=== PATIENT | female | born 1965 | race Caucasian/White ===

== ENCOUNTER 2016-11-05 14:10 | Emergency (ER) | payer MEDICARE, OTHER ==
--- NOTE | ~2016-11-05 | CR63 ---
[facility] A Service of [facility] & [facility] RADIOLOGY TEXT RESULTS PATIENT: ALLISON VARGAS LOCATION: [place] : 67 UNIT #: [id number] AGE: [address]: Marci Prado SEX: F ORDER DR: [id number] [facility] [address] [place], [place] [address] [id number] E MR#: [id number] Acc #: [id number] NAME: ALLISON VARGAS. : 1965 SEX: F STUDY DATE/TIME: 11/05/2016 13:47 UNIT: [facility] ROOM: STUDY DESCRIPTION: CR Chest 2 View Attending Physician: Marci Prado P.A.-C. Ordering Physician: Marci Prado P.A.-C. Primary Care Physician: Shayla Gonzáles Aprn MEDICAL IMAGING REPORT This report is preliminary unless electronic signature is present EXAM 2 views chest, 11/05/2016 HISTORY Short of air. Cough, body aches, cough and fever 3 days duration. Hypoglycemic. FINDINGS PA and lateral radiographs of the chest are presented. No prior studies for comparison. Partially visualized cervical spine fixation hardware. Mild thoracic scoliosis. No acute-appearing bony abnormality. Heart and mediastinum normal in size and contour. The lungs appear somewhat hyperinflated. Correlate with any known history of chronic airway disease. There is no clear indication of acute infectious or inflammatory disease. No definite pleural effusion. No pneumothorax. No suspicious nodule. Visualized upper abdomen unremarkable. Dictated by... Cabrera Krishnamurthy M.D. THIS IS AN ELECTRONICALLY VERIFIED REPORT Cabrera Krishnamurthy M.D. at 11/08/2016 6:08 PM JENNIFER/adrián TD: 11/06/2016 10:19 JOB #: [id number] MEDICAL IMAGING REPORT Page 1 of 1 COPY
[~2016-11-05 14:10] MED LIST: BACTRIM 400-801 TA1 PO; CELEXA PO; ESTRACE PO; KEFLEX500 MG PO; SPIRIVA18 MCG PO; ZOCOR PO
[2016-11-05 14:19] LABS: INFLUENZA A NEG (NEG)
[2016-11-05 14:20] LABS: INFLUENZA B POS (NEG)
[2017-03-07] MEDS ORDERED: TIROSINT50 MCG PO (13:15)
[2017-03-07] MEDS ORDERED: SIMVASTATIN10 MG PO (13:15)
[2017-03-07] MEDS ORDERED: CITALOPRAM HBR40 MG PO (13:16)
[2017-03-07] MEDS ORDERED: DIAZEPAM PO (13:16)
[2017-03-07] MEDS ORDERED: ESTRADIOL1 MG PO (13:16)
[2017-03-07] MEDS ORDERED: HYDROCODON-ACE1 EAC5 PO (13:17)
[2017-03-07] MEDS ORDERED: PROAIR HFA8.5 GM INH (13:18)
== END 2016-11-05 14:55 | disposition home or self-care (01) ==
LOC: CFTX 14:10
PROVIDERS: Physician Assistant
DX: J10.1 Influenza due to other identified influenza virus with other respiratory manifestations (principal); J44.9 Chronic obstructive pulmonary disease, unspecified; F32.9 Major depressive disorder, single episode, unspecified; E03.9 Hypothyroidism, unspecified; F17.210 Nicotine dependence, cigarettes, uncomplicated
CPT/HCPCS: 71020; 87651; 87804; 94640; 99283

== ENCOUNTER → 2016-12-20 | Outpatient (CLI) | payer MEDICARE, OTHER ==
[~2016-12-20] MED LIST changes: +CITALOPRAM HBR40 MG PO; +DIAZEPAM PO; +ESTRADIOL1 MG PO; +HYDROCODON-ACE1 EAC5 PO; +PROAIR HFA8.5 GM INH; +SIMVASTATIN10 MG PO; +TIROSINT50 MCG PO
--- NOTE | ~2016-12-20 | MY11 ---
[facility] A Service of [facility] RADIOLOGY TEXT RESULTS PATIENT: ALLISON VARGAS LOCATION: [facility] #: [id number] : [birth year] UNIT #: [id number] AGE: [address]: Lacho Burgess MD SEX: F ORDER DR: [id number] [facility] [address] [place], [place] [address] [id number] O MR#: [id number] Acc #: [id number] NAME: ALLISON VARGAS. : 1965 SEX: F STUDY DATE/TIME: 12/20/2016 12:22 UNIT: [facility] ROOM: STUDY DESCRIPTION: MY Mammogram Screening Dig [place] Attending Physician: Lacho Burgess M.D. Ordering Physician: Lacho Burgess M.D. Primary Care Physician: Lacho Burgess M.D. MEDICAL IMAGING REPORT This report is preliminary unless electronic signature is present EXAM Mild digital screening digital screening mammogram with CAD DATE 12/20/2016 HISTORY 51-year-old female with no personal or family history of breast cancer or current complaints. COMPARISON Bilateral digital screening mammogram 08/13/2014, 06/20/2013. Left breast digital diagnostic mammogram 09/23/2014, 05/06/2015. Left breast diagnostic ultrasound 05/06/2015. FINDINGS CC and MLO views were obtained of each breast utilizing digital technique and reviewed with an FDA-approved CAD device. Scattered fibroglandular densities are present bilaterally. A previously described small oval nodule within the 3 o'clock left breast on the 2014 screening mammogram has completely resolved today. No new or suspicious nodule, architectural distortion or clustered microcalcification is seen. Scattered fibroglandular densities are present bilaterally. IMPRESSION BIRADS category 1. Negative screening mammogram. Routine screening mammogram is recommended in 1 year. Patients over the age of 40 are entered into a reminder system with target due date for the next mammogram. A result letter will also be sent to the patient. [facility] A Service of [facility] RADIOLOGY TEXT RESULTS PATIENT: ALLISON VARGAS [id number] : [birth year] UNIT #: [id number] AGE: [address]: Lacho Burgess MD SEX: F ORDER DR: BIRADS: 1, negative. Dictated by... Yoana Wagner M.D. THIS IS AN ELECTRONICALLY VERIFIED REPORT Yoana Wagner M.D. at 12/21/2016 9:40 AM ANGLE/thee TD: 12/20/2016 14:11 JOB #: [id number] MEDICAL IMAGING REPORT Page 1 of 1 COPY
== END | disposition home or self-care (01) ==
LOC: CWCC 12:05
DX: Z12.31 Encounter for screening mammogram for malignant neoplasm of breast (principal)
CPT/HCPCS: G0202

== ENCOUNTER → 2017-03-07 | Day surgery (SDC) | payer MEDICARE, OTHER | END | disposition home or self-care (01) | LOC: COPS 12:29 | DX: Z12.11 Encounter for screening for malignant neoplasm of colon (principal); D12.5 Benign neoplasm of sigmoid colon; K64.8 Other hemorrhoids; E03.9 Hypothyroidism, unspecified; F17.210 Nicotine dependence, cigarettes, uncomplicated; Z90.710 Acquired absence of both cervix and uterus; Z98.51 Tubal ligation status; Z98.890 Other specified postprocedural states; Z79.899 Other long term (current) drug therapy | CPT/HCPCS: 88305; J2250 ==

== ENCOUNTER → 2017-03-09 | Day surgery (SDC) | payer MEDICARE, OTHER ==
--- NOTE | ~2017-03-09 | OR ---
Unit #: [id number] #: [id number] Patient: ALLISON VARGAS [id number] [address] [address] [id number] O MR#: [id number] NAME: ALLISON VARGAS ROOM: Date of Procedure: 03/09/2017 Admission Date: 03/09/2017 Surgeon: Marcelino Jauregui M.D. : 1965 Attending Physician: Marcelino Jauregui M.D. Primary Care Physician: Lacho Burgess M.D. OPERATIVE REPORT PREOPERATIVE DIAGNOSES Postlaminectomy degenerative disk disease, back pain, radiculopathy. POSTOPERATIVE DIAGNOSES Postlaminectomy degenerative disk disease, back pain, radiculopathy. PROCEDURE PERFORMED Lumbar epidural steroid injection with intravenous sedation and fluoroscopic guidance for needle localization. INDICATIONS FOR PROCEDURE The patient is a 51-year-old female with previously mentioned diagnosis. She had worsening symptoms of back and radiculopathy consistent with radiculitis that would not settle with conservative measures. Workup demonstrated some acute inflammation around her prior surgical site. There was no new disk herniation due to the irritation. Did not settle with conservative measures, so plan is for a trial of an epidural steroid injection. DESCRIPTION OF PROCEDURE The patient was placed in the seated position. Standard monitors were applied. 2 mg of Versed were given for sedation and anxiolysis, which were adequate. Vital signs remained stable. Sterile prep and drape then of the lumbar area was performed. The skin then at the L5 level was localized with 1% lidocaine. An 18-gauge [place]rex[place]ad needle was then advanced via loss of resistance technique and fluoroscopic guidance into the epidural space. After confirming proper positioning with fluoroscopy and radiographic contrast, 80 mg of Depo-Medrol and 4 mL of 0.125% bupivacaine were deposited. The patient tolerated the procedure otherwise well and was discharged to the recovery room in stable condition. Dictated by... Pedro RiveraP/quanl TD: 03/09/2017 12:32 JOB #: [id number] Unit #: [id number] #: [id number] Patient: ALLISON VARGAS OPERATIVE REPORT Page 1 of 1 X Marcelino Jauregui MD X PROCEDURE OPERATIVE NOTE
--- NOTE | ~2017-03-09 | OR ---
Unit #: [id number] #: [id number] Patient: ALLISON VARGAS [id number] [address] [place], [place] [address] [id number] O MR#: [id number] NAME: ALLISON VARGAS ROOM: Date of Procedure: 03/07/2017 Admission Date: 03/09/2017 Surgeon: Kenny Escobar M.D. : 1965 Attending Physician: Marcelino Jauregui M.D. Primary Care Physician: Lacho Burgess M.D. OPERATIVE REPORT PREOPERATIVE DIAGNOSES Colorectal cancer screening. The patient also has a history of hematochezia. PROCEDURES PERFORMED Colonoscopy and polypectomy. POSTOPERATIVE DIAGNOSES 1. The patient had a sigmoid polyp that the latter was removed using snare cautery polypectomy. 2. Small internal hemorrhoids. 3. Rest of the examination up to cecum and terminal ileum was normal. The quality of prep was excellent. RECOMMENDATIONS Follow up results of polyp histology and consider repeat colonoscopy in 5 years. SEDATION USED MAC. DESCRIPTION OF PROCEDURE Following detailed explanation of the potential risks and complications of a colonoscopy, namely perforation, bleeding, and complications related to sedation, the patient was brought to GI lab and laid in the left lateral decubitus position. A digital rectal examination was performed, which was normal. Lubricated tip of the Olympus video colonoscope was inserted through the anus and advanced under direct vision. The scope was then passed up to sigmoid into descending colon. No diverticula were noted in this area. The scope tip was then navigated all the way up to cecum with visualization of the ileocecal valve and the appendiceal orifice. Preparation was excellent with good visualization, and photodocumentation was obtained. Last several inches of the terminal ileum also visualized after intubation of the ileocecal and appeared normal. Successive segments of the colonic mucosa were examined upon withdrawal, and the patient was noted to have a single sessile polyp in the sigmoid colon. This was about 1.8 to 2 cm in size. It was removed using snare cautery polypectomy. The polyp was retrieved and sent for Histology. No additional polyps noted. The patient did not have any diverticula, but did have small internal hemorrhoids. These were felt to be too small to require band ligation. The scope was withdrawn. The patient returned to the recovery area. She tolerated the procedure without any postprocedure Unit #: [id number] #: [id number] Patient: ALLISON VARGAS complications. Dictated by... Pedro Maher/kyaw TD: 03/15/2017 06:58 JOB #: [id number] OPERATIVE REPORT Page 1 of 1 X Kenny Escobar MD PROCEDURE OPERATIVE NOTE
== END | disposition home or self-care (01) ==
LOC: CCSC 10:36
DX: M51.16 Intervertebral disc disorders with radiculopathy, lumbar region (principal); F32.9 Major depressive disorder, single episode, unspecified; F17.210 Nicotine dependence, cigarettes, uncomplicated; Z79.891 Long term (current) use of opiate analgesic; Z79.899 Other long term (current) drug therapy; Z98.890 Other specified postprocedural states; Z90.710 Acquired absence of both cervix and uterus; Z98.51 Tubal ligation status
CPT/HCPCS: J1040; J2250

== ENCOUNTER → 2017-03-16 | Day surgery (SDC) | payer MEDICARE, OTHER ==
--- NOTE | ~2017-03-16 | OR ---
Unit #: [id number] #: [id number] Patient: ALLISON VARGAS [id number] [address] [address] [id number] O MR#: [id number] NAME: ALLISON VARGAS ROOM: Date of Procedure: 03/16/2017 Admission Date: 03/16/2017 Surgeon: Marcelino Jauregui M.D. : 1965 Attending Physician: Marcelino Jauregui M.D. Primary Care Physician: Lacho Burgess M.D. OPERATIVE REPORT PREOPERATIVE DIAGNOSES Post-laminectomy syndrome, degenerative disk disease, back pain, radiculopathy. POSTOPERATIVE DIAGNOSES Post-laminectomy syndrome, degenerative disk disease, back pain, radiculopathy. PROCEDURE PERFORMED Lumbar epidural steroid injection with intravenous sedation and fluoroscopic guidance for needle localization. INDICATIONS FOR PROCEDURE The patient is a 51-year-old female with worsening back and right lower extremity pain due to previously mentioned diagnosis. She is status post laminectomy. She has granulation tissue present at L5-S1 level as well as pedicle edema changes possibly consistent with stress fractures of L5 pars. Initial epidural steroid injection resulted in at least 50% settling of her symptom complex based on a good response, pathology, and symptomatology, we are going to proceed with a second injection today. DESCRIPTION OF PROCEDURE The patient was placed in a seated position. Standard monitors were applied. 2 mg of Versed were given for sedation and anxiolysis, which were adequate. Vital signs remained stable. Sterile prep and drape then of lumbar area was performed. The skin then at the L4-L5 level was localized with 1% lidocaine. An 18-gauge Kadoinktead needle was then advanced via loss of resistance technique and fluoroscopic guidance in toward the epidural space. After confirming proper positioning with fluoroscopy and radiographic contrast, 80 mg of Depo-Medrol and 4 mL of 0.125% bupivacaine were deposited. The patient tolerated the procedure otherwise well and was discharged to recovery room in stable condition. Dictated by... Marcelino Jauregui M.D. LHP/modl TD: 03/16/2017 15:00 JOB #: [id number] Unit #: [id number] #: [id number] Patient: ALLISON VARGAS OPERATIVE REPORT Page 1 of 1 X Marcelino Jauregui MD X PROCEDURE OPERATIVE NOTE
== END | disposition home or self-care (01) ==
LOC: CCSC 10:36
DX: M96.1 Postlaminectomy syndrome, not elsewhere classified (principal); M51.16 Intervertebral disc disorders with radiculopathy, lumbar region; F32.9 Major depressive disorder, single episode, unspecified; Z79.891 Long term (current) use of opiate analgesic; Z79.899 Other long term (current) drug therapy; Z98.890 Other specified postprocedural states
CPT/HCPCS: J1040; J2250

== ENCOUNTER → 2017-03-23 | Day surgery (SDC) | payer MEDICARE, OTHER ==
--- NOTE | ~2017-03-23 | OR ---
Unit #: [id number] #: [id number] Patient: ALLISON VARGAS [id number] [address] [place], [place] [address] [id number] O MR#: [id number] NAME: ALLISON VARGAS ROOM: Date of Procedure: 03/23/2017 Admission Date: 03/23/2017 Surgeon: Marcelino Jauregui M.D. : 1965 Attending Physician: Marcelino Jauregui M.D. Primary Care Physician: Lacho Burgess M.D. OPERATIVE REPORT PREOPERATIVE DIAGNOSES Post-laminectomy, back pain, radiculopathy, degenerative disk disease. POSTOPERATIVE DIAGNOSES Post-laminectomy, back pain, radiculopathy, degenerative disk disease. PROCEDURE PERFORMED Lumbar epidural steroid injection with intravenous sedation and fluoroscopic guidance for needle localization. INDICATIONS FOR PROCEDURE The patient is a 51-year-old female with worsening back and right greater than left lower extremity pain. She has chronic right leg issues following her prior laminectomy. Workup demonstrated inflammatory changes and pedicle edema in and around the area of surgery and scar tissue. It was felt to be the etiology for flare-up pain. Two injections had been done over the last several weeks. They have given her additively 60% to 70% settling of back toward her baseline. Based on her good partial response, pathology, and symptomatology, we are going to proceed with a final injection today. DESCRIPTION OF PROCEDURE The patient was placed in a seated position. Standard monitors were applied. 2 mg of Versed were given for sedation and anxiolysis, which were adequate. Vital signs remained stable. Sterile prep and drape then of the lumbar area was performed. The skin at the L4 level was localized with 1% lidocaine. An 18-gauge [employer] [place] needle was then advanced via loss of resistance technique and fluoroscopic guidance in toward the epidural space. After confirming proper positioning with fluoroscopy and radiographic contrast, 80 mg of Depo-Medrol and 6 mL of 0.125% bupivacaine were deposited. The patient tolerated the procedure otherwise well and was discharged to the recovery room in stable condition. Dictated by... Marcelino Jauregui M.D. LHP/kyaw TD: 03/23/2017 12:54 JOB #: [id number] Unit #: [id number] #: [id number] Patient: ALLISON VARGAS ELY CC: Linda/margaret Please Delete OPERATIVE REPORT Page 1 of 1 X Marcelino Jauregui MD X PROCEDURE OPERATIVE NOTE
== END | disposition home or self-care (01) ==
LOC: CCSC 10:41
DX: M51.16 Intervertebral disc disorders with radiculopathy, lumbar region (principal); F32.9 Major depressive disorder, single episode, unspecified; Z79.891 Long term (current) use of opiate analgesic; Z79.899 Other long term (current) drug therapy; Z98.890 Other specified postprocedural states
CPT/HCPCS: J1040; J2250